=== PATIENT | female | born 1975 | race Hispanic/Latino ===

== ENCOUNTER 2022-07-01 16:09 | Emergency (ER) | payer BC, SELFPAY ==
[2022-07-01 16:16] VITALS: BP 106/46; PULSE 89; RESP 14; TEMP 37.4; O2SAT 100
--- NOTE | 2022-07-01 17:20 | ED.URI ---
HPI - URI/Sore Throat General Chief Complaint: Upper Respiratory Infection Stated Complaint: sore throat Time Seen by Provider: 07/01/22 17:21 Source: patient, RN notes reviewed and old records reviewed Mode of arrival: ambulatory Limitations: no limitations History of Present Illness HPI Narrative: 46-year-old female who presents to [facility] care with complaints of sore throat, cough, chills, body aches. She complains of very painful swallowing, for the past 3 days.Patient reports that she has had history of strep in the past and also has history of past sinus problems and infections. Patient reports no known sick contacts. MD elicited complaint: sore throat Onset (ago): day(s) (3) Related Data Home Medications Medication Instructions Recorded Confirmed dulaglutide 1.5 mg/0.5 mL 1.5 mg subcut WEEKLY 07/01/22 07/01/22 subcutaneous pen injector (Trulicity) Allergies Allergy/AdvReac Type Severity Reaction Status Date / Time No Known Allergies Allergy Verified 07/01/22 17:00 Review of Systems Review of Systems: CONSTITUTIONAL: reports low grade fever, chills, or sweats. EYES: Denies visual changes, redness, or discharge. ENT: Denies rhinorrhea, congestion,positive for sore throat, or otalgia. CARDIOVASCULAR: Denies chest pain, palpitations, or edema. RESPIRATORY: Positive for cough no dyspnea. GASTROINTESTINAL: Denies abdominal pain, nausea, vomiting, or diarrhea. GENITOURINARY: Denies dysuria or hematuria. SKIN: Denies rash or itching. MUSCULOSKELETAL: Denies back pain, joint pain, states body aches NEUROLOGIC: Denies headache, numbness, or weakness. PSYCHIATRIC: Denies anxiety or depression. All systems reviewed & are unremarkable except as noted in HPI and below PMFSH Past Medical History Medical History (Updated 07/02/22 @ 21:51 by Yodit Gudino NP) COVID-19 10/2021 Diabetes Surgical History Surgical History (Updated 07/02/22 @ 21:50 by Yodit Gudino NP) H/O: hysterectomy Social History Social History (Updated 07/02/22 @ 21:50 by Yodit Gudino NP) Smoking status: Never smoker Alcohol intake: unknown Substance use type: does not use Living arrangements: with family Gender identity (if verbalized by the patient): Female Comments At time of signature, agree with nursing past medical, surgical, social and family history. There is no relevant family history pertinent to the presenting complaint Exam Narrative: GENERAL: Well-appearing, well-nourished, and in no acute distress. HEAD: Normocephalic, atraumatic. EYES: PERRLA and EOMI. ENT: Nares clear, no rhinorrhea or epistaxis. Mucous membranes moist.TM's normal with good light reflex, throat red with no lesions or exudates red swollen tonsils,painful swallowing, some post nasal drainage noted. NECK: Supple. no lymphadenopathy CHEST: Clear to auscultation. No respiratory distress.SAO2 100% on room air HEART: Regular rate and rhythm. No murmur heard. Normal peripheral pulses. ABDOMEN: Soft, nontender, nondistended, normal active bowel sounds. EXTREMITIES: Normal range of motion. No edema. SKIN: Warm, dry, no rash. NEURO: No focal deficits. Alert and oriented x3. Course Course Level of Care: Express Care Visit Vital Signs Vital signs: Vital Signs Temperature 37.4 C 07/01/22 16:16 Pulse Rate 89 07/01/22 16:16 Respiratory Rate 14 07/01/22 16:16 Blood Pressure 106/46 L 07/01/22 16:16 Pulse Oximetry 100 07/01/22 16:16 Oxygen Delivery Room Air 07/01/22 16:16 Temperature 37.4 C 07/01/22 16:16 Pulse Rate 89 07/01/22 16:16 Respiratory Rate 14 07/01/22 16:16 Blood Pressure 106/46 L 07/01/22 16:16 Pulse Oximetry 100 07/01/22 16:16 Oxygen Delivery Room Air 07/01/22 16:16 MDM - URI/Sore Throat Differential Diagnosis Differential diagnosis: Likely upper respiratory infection, viral infection, pharyngitis and other (Strep pharyngitis) Medical Records Attestation: I reviewed t
== END 2022-07-01 17:42 | disposition home or self-care (01) ==
PROVIDERS: Emergency Provider Registered Nurse; PCP Physician Assistant
DX: J02.9 Acute pharyngitis, unspecified (principal); J06.9 Acute upper respiratory infection, unspecified; Z20.822 Contact with and (suspected) exposure to COVID-19; E11.9 Type 2 diabetes mellitus without complications; Z86.16 Personal history of COVID-19
CPT/HCPCS: 87081; 87426; 99203; C9803; G0463

== ENCOUNTER 2024-01-23 12:00 | Emergency (ER) | payer BC, SELFPAY ==
[2024-01-23 12:09] VITALS: BP 134/67; PULSE 90; RESP 20; TEMP 37.4; O2SAT 100
--- NOTE | 2024-01-23 12:33 | ED.URI ---
HPI - URI/Sore Throat General Chief Complaint: Upper Respiratory Infection Stated Complaint: Fever/Body Aches/Sore Throat Time Seen by Provider: 01/23/24 12:34 Source: patient and RN notes reviewed Mode of arrival: ambulatory Limitations: no limitations History of Present Illness HPI Narrative: 48-year-old female presents with concern for cough, sneezing, body aches, fever, chills, sore throat. Reports symptoms started 2 days ago. She has been taking [id number] medications without relief. MD elicited complaint: cough and sore throat Related Data Home Medications Medication Instructions Recorded Confirmed dulaglutide 1.5 mg/0.5 mL 1.5 mg subcut WEEKLY 07/01/22 01/23/24 subcutaneous pen injector (Trulicity) Allergies Allergy/AdvReac Type Severity Reaction Status Date / Time No Known Allergies Allergy Verified 01/23/24 12:21 Review of Systems Review of Systems: CONSTITUTIONAL: Reports malaise, chills, sweats, or fever. EYES: Denies visual changes, redness, or discharge. ENT: Reports rhinorrhea, congestion, and sore throat. CARDIOVASCULAR: Denies chest pain, palpitations, or edema. RESPIRATORY: Reports cough. Denies dyspnea. GASTROINTESTINAL: Denies abdominal pain, nausea, vomiting, diarrhea SKIN: Denies rash or itching. MUSCULOSKELETAL: Reports myalgia. NEUROLOGIC: Reports headache. All systems reviewed & are unremarkable except as noted in HPI and below PMFSH Past Medical History Medical History (Updated 01/23/24 @ 12:41 by Rhiannon Lemus NP) COVID-19 10/2021 Diabetes Surgical History Surgical History (Updated 07/02/22 @ 21:50 by Yodit Gudino NP) H/O: hysterectomy Social History Social History (Updated 07/02/22 @ 21:50 by Yodit Gudino NP) Smoking status: Never smoker Alcohol intake: unknown Substance use type: does not use Living arrangements: with family Gender identity (if verbalized by the patient): Female Comments At time of signature, agree with nursing past medical, surgical, social and family history. There is no relevant family history pertinent to the presenting complaint Exam Narrative: GENERAL: Nontoxic-appearing, well-nourished, and in no acute distress. HEAD: Normocephalic EYES: PERRLA, conjunctivae clear ENT: Nares clear. Mucous membranes moist. TM pearly maciel with dull light reflex bilaterally; no tragal tenderness. Oropharynx not erythematous without lesions. Tonsils not enlarged and without exudate, no drooling, no hoarseness, no trismus, uvula midline. NECK: Supple. No lymphadenopathy CHEST: Clear to auscultation, breath sounds equal. No wheezing, rhonchi, rales, or stridor. No respiratory distress, speaks in full sentences. HEART: Regular rate and rhythm. No murmur heard. SKIN: Warm, dry, no rash. NEURO: Alert and oriented x3. PSYCH: Normal mood and affect Course Course Emergency Course: Patient requests Paxlovid Patient is aware of diagnosis, understands and agrees to treatment plan. Anticipatory guidance given. Patient agrees to follow-up as directed and is aware of reasons to seek care at the emergency department. Portions of this record may have been created with voice recognition software Level of Care: Express Care Visit Vital Signs Vital signs: Vital Signs Temperature 99.3 F 01/23/24 12:09 Pulse Rate 90 01/23/24 12:09 Respiratory Rate 20 01/23/24 12:09 Blood Pressure 134/67 01/23/24 12:09 Pulse Oximetry 100 01/23/24 12:09 Oxygen Delivery Room Air 01/23/24 12:09 Temperature 99.3 F 01/23/24 12:09 Pulse Rate 90 01/23/24 12:09 Respiratory Rate 20 01/23/24 12:09 Blood Pressure 134/67 01/23/24 12:09 Pulse Oximetry 100 01/23/24 12:09 Oxygen Delivery Room Air 01/23/24 12:09 Reviewed. MDM - URI/Sore Throat MDM Narrative Medical decision making narrative: Differential diagnosis considered: Chavis virus, strep pharyngitis, allergic rhinitis, upper respiratory tract
== END 2024-01-23 12:47 | disposition home or self-care (01) ==
PROVIDERS: Emergency Provider Nurse Practitioner; PCP Physician Assistant
DX: U07.1 COVID-19 (principal); E11.9 Type 2 diabetes mellitus without complications
CPT/HCPCS: 87081; 87426; 87804; 87880; 99213; G0463